=== PATIENT | male | born 1995 | race Caucasian/White ===

== ENCOUNTER 2018-11-10 18:14 | Emergency (ER) | payer SELFPAY ==
--- NOTE | 2018-11-10 18:20 | ER Report ---
History and Physical Time Seen By MD: 18:20 HPI/ROS CHIEF COMPLAINT: Nausea, vomiting and diarrhea HISTORY OF PRESENT ILLNESS: This is a 23-year-old male presents to the emergency department for nausea, vomiting and diarrhea. Patient states that about 2 days ago he developed intermittent nausea and vomiting then progressed into diarrhea. He states then yesterday he had a rather rapid onset of aches, chills and pains. Had increased nausea vomiting and diarrhea. Denies shortness of breath. No chest pain. No rashes or headaches. The patient also stated that he did consume a large quantity of alcohol last night. REVIEW OF SYSTEMS: Constitutional: No fever, no chills. Eyes: No discharge. ENT: No sore throat. Cardiovascular: No chest pain, no palpitations. Respiratory: No cough, no shortness of breath. Gastrointestinal: As above. Genitourinary: No hematuria. Musculoskeletal: As above. Skin: No rashes. Neurological: No headache. Allergies: Coded Allergies: amoxicillin (Verified Allergy, Unknown, 11/10/18) clavulanic acid (Verified Allergy, Unknown, 11/10/18) Home Meds Active Scripts Ondansetron Hcl (ZOFRAN) 4 Mg Tablet, 4 MG PO Q4-6H PRN for prn, #20 TAB 0 Refills Prov:LILLIAN SANTOS LAW OFFICE ASSISTANT- 11/10/18 Past Medical/Surgical History The patient has a past medical and surgical history of using marijuana occasionally and drinking alcohol. Reviewed Nurses Notes: Yes Constitutional Vital Sign - Last 24 Hours 11/10/18 11/10/18 11/10/18 11/10/18 18:20 18:21 18:30 18:44 Temp 98.8 Pulse 107 91 Resp 20 B/P (MAP) 153/100 153/100 (117) 130/86 (101) Pulse Ox 93 96 O2 Delivery Room Air 11/10/18 11/10/18 11/10/18 11/10/18 19:00 19:14 19:30 19:44 Pulse 93 95 B/P (MAP) 142/79 (100) 144/84 (104) Pulse Ox 92 92 Physical Exam General Appearance: The patient is alert, has no immediate need for airway protection and no signs of toxicity. Eyes: Pupils equal and round no pallor or injection. ENT, Mouth: Mucous membranes are moist. Respiratory: There are no retractions, lungs are clear to auscultation. Cardiovascular: Pounding, Regular rate and rhythm, no murmurs, clicks or rubs. Gastrointestinal: Abdomen is soft and non tender, no masses, hyperactive bowel sounds. Neurological: Alert and oriented 4. Moving all extremities. Following all commands. No focal neuro deficits. Skin: Warm and dry, no rashes. Musculoskeletal: Neck is supple non tender. Extremities are nontender, nonswollen and have full range of motion. DIFFERENTIAL DIAGNOSIS: After history and physical exam differential diagnosis was considered for influenza, viral syndrome, gastroenteritis, food poisoning and bowel obstruction. Medical Decision Making Data Points Result Diagram: 11/10/18 1834 11/10/18 0000 Laboratory Hematology Test 11/10/18 00:00 11/10/18 18:34 Sodium Level 138 mmol/L (137-145) Potassium Level 4.4 mmol/L (3.5-5.0) Chloride Level 103 mmol/L (98-107) Carbon Dioxide Level 13 mmol/L (22-30) Blood Urea Nitrogen 15 mg/dl (9-21) Creatinine 0.80 mg/dl (0.66-1.25) Glomerular Filtration Rate Calc > 60.0 Random Glucose 74 mg/dl (75-110) Calcium Level 9.8 mg/dl (8.4-10.2) Total Bilirubin 0.6 mg/dl (0.2-1.3) Aspartate Amino Transf (AST/SGOT) 41 U/L (0-35) Alanine Aminotransferase (ALT/SGPT) 36 U/L (0-56) Alkaline Phosphatase 110 U/L (0-126) Total Protein 8.3 g/dl (6.3-8.2) Albumin 5.1 g/dl (3.5-5.0) Influenza Virus Type A (PCR) Negative (NEGATIVE) Influenza Virus Type B (PCR) Negative (NEGATIVE) Red Blood Count 5.83 M/uL (4.00-5.60) Mean Corpuscular Volume 91.5 fL (80.0-96.0) Mean Corpuscular Hemoglobin 31.5 pg (26.0-33.0) Mean Corpuscular Hemoglobin Concent 34.5 g/dL (32.0-36.0) Red Cell Distribution Width 13.2 % (11.5-14.5) Mean Platelet Volume 8.5 fL (7.2-11.1) Neutrophils (%) (Auto) 88.4 % (39.4-72.5) Lymphocytes (%) (Auto) 7.6 % (17.6-49.6) Monocytes (%) (Auto) 3.6 % (4.1-12.4) Eosinophils (%) (Auto) 0.0 % (0.4-6.7) Basophils (%) (Auto) 0.4 % (0.3-1.4) Nucleated RBC Relative Count (auto) 0.0 /100WBC Neutrophils # (Auto) 16.9 K/uL (2.0-7.4) Lymphocytes # (Auto) 1.5 K/uL (1.3-3.6) Monocytes # (Auto) 0.7 K/uL (0.3-1.0) Eosinophils # (Auto) 0.0 K/uL (0.0-0.5) Basophils # (Auto) 0.1 K/uL (0.0-0.1) Nucleated RBC Absolute Count (auto) 0.00 K/uL Peripheral Blood Smear Yes Y/N Chemistry Test 11/10/18 00:00 11/10/18 18:34 Glomerular Filtration Rate Calc > 60.0 Calcium Level 9.8 mg/dl (8.4-10.2) Total Bilirubin 0.6 mg/dl (0.2-1.3) Aspartate Amino Transf (AST/SGOT) 41 U/L (0-35) Alanine Aminotransferase (ALT/SGPT) 36 U/L (0-56) Alkaline Phosphatase 110 U/L (0-126) Total Protein 8.3 g/dl (6.3-8.2) Albumin 5.1 g/dl (3.5-5.0) Influenza Virus Type A (PCR) Negative (NEGATIVE) Influenza Virus Type B (PCR) Negative (NEGATIVE) White Blood Count 19.2 k/uL (4.5-11.0) Red Blood Count 5.83 M/uL (4.00-5.60) Hemoglobin 18.4 g/dL (14.0-18.0) Hematocrit 53.4 % (42.0-52.0) Mean Corpuscular Volume 91.5 fL (80.0-96.0) Mean Corpuscular Hemoglobin 31.5 pg (26.0-33.0) Mean Corpuscular Hemoglobin Concent 34.5 g/dL (32.0-36.0) Red Cell Distribution Width 13.2 % (11.5-14.5) Platelet Count 292 K/uL (150-450) Mean Platelet Volume 8.5 fL (7.2-11.1) Neutrophils (%) (Auto) 88.4 % (39.4-72.5) Lymphocytes (%) (Auto) 7.6 % (17.6-49.6) Monocytes (%) (Auto) 3.6 % (4.1-12.4) Eosinophils (%) (Auto) 0.0 % (0.4-6.7) Basophils (%) (Auto) 0.4 % (0.3-1.4) Nucleated RBC Relative Count (auto) 0.0 /100WBC Neutrophils # (Auto) 16.9 K/uL (2.0-7.4) Lymphocytes # (Auto) 1.5 K/uL (1.3-3.6) Monocytes # (Auto) 0.7 K/uL (0.3-1.0) Eosinophils # (Auto) 0.0 K/uL (0.0-0.5) Basophils # (Auto) 0.1 K/uL (0.0-0.1) Nucleated RBC Absolute Count (auto) 0.00 K/uL Peripheral Blood Smear Yes Y/N ED Course/Re-evaluation Clinical Indication for ER IV: Hydration, IV Access ED Course The patient was admitted to room. A history and physical were obtained. Differential diagnoses were considered. An IV was started. A CBC, CMP were obtained. A 1 L normal saline bolus was given. 4 mg IV Zofran were given. CBC showing white count of 19.2, H&H 18.4 and 53.4, CO2 13, sugar 74. After speaking with the patient's marked extensively, he did finally indicate that he had sudden GI symptoms roughly 2 days ago however last night he had a significant amount of alcohol and has been nauseous and vomiting since. I did review the laboratory studies with the patient. I did tell him that this is likely a gastroenteritis that was complicated by consumption of alcohol. The white blood cell count is likely due to the gastroenteritis and the acute vomiting and diarrhea. I discussed this with the patient. Patient states he feels significantly better after the fluids and Zofran. I did give the patient a prescription for Zofran. I also encouraged patient not to drink alcohol for the next 1-2 weeks, drink plenty of fluids starting with a clear liquid diet and progress into a soft and regular diet. Patient expressed understanding and was d ischarged home. Decision to Disposition Date: Nov 10, 2018 Decision to Disposition Time: 19:42 Depart Departure Latest Vital Signs Vital Signs Date Time Temp Pulse Resp B/P (MAP) Pulse Ox O2 Delivery O2 Flow Rate FiO2 11/10/18 19:44 95 92 11/10/18 19:30 144/84 (104) 11/10/18 18:20 98.8 20 Room Air Impression: Primary Impression: Gastroenteritis Condition: Improved Disposition: HOME OR SELF-CARE New Scripts Ondansetron Hcl (ZOFRAN) 4 Mg Tablet 4 MG PO Q4-6H PRN for prn, #20 TAB 0 Refills Prov: LILLIAN SANTOS-KATIE 11/10/18 Patient Instructions: Clear Liquid Diet (ED), Gastroenteritis (ED) Additional Instructions: Please avoid alcohol for the next 7-14 days. Clear liquid diet for the next 24 hours then advance to a bland, soft diet and advanced as tolerated. Take Zofran as needed for nausea. Drink plenty of water. Get plenty of rest. Return to the emergency department for any other concerns or worsening symptoms. LILLIAN SANTOS-BC Nov 10, 2018 18:20
[2018-11-10] MEDS ORDERED: NS(*) 0.9% 1000 ML BAG 1,000 ML IV ONE (18:34)
[2018-11-10] MEDS ORDERED: ONDANSETRON 4 MG/2 ML VIAL IVP ONE ×2 (18:35→18:55)
[2018-11-10 18:47] LABS: PLATELET COUNT, AUTOMATED 292 K/uL (150-450)
[2018-11-10 19:30] VITALS: BP 144/84
[2018-11-10] MEDS ORDERED: ONDA4TAB97 PO (19:43)
== END 2018-11-10 19:54 | disposition home or self-care (01) ==
LOC: ER 18:48
DX: K52.9 Noninfective gastroenteritis and colitis, unspecified (principal)
CPT/HCPCS: 85025; 87502; 96374; 99283; J2405; 82040; 82247; 82310; 82374; 82435; 82565; 82947; 84075; 84132; 84155; 84295; 84450; 84460; 84520

== ENCOUNTER 2019-01-13 04:22 | Emergency (ER) | payer SELFPAY ==
[~2019-01-13 04:22] MED LIST: ONDA4TAB97 PO
[2019-01-13 04:24] VITALS: BP 143/99
--- NOTE | 2019-01-13 04:26 | ER Report ---
History and Physical Time Seen By MD: 04:26 HPI/ROS CHIEF COMPLAINT: Detention clearance HISTORY OF PRESENT ILLNESS: 23-year-old male brought in by police for usp clearance. Patient voices no complaints. Patient voices no significant past medical history. Patient voices no injuries. Patient missed alcohol ingestion. REVIEW OF SYSTEMS: Respiratory: No cough, no dyspnea. Cardiovascular: No chest pain, no palpitations. Gastrointestinal: No vomiting, no abdominal pain. Musculoskeletal: No back pain. Allergies: Coded Allergies: amoxicillin (Verified Allergy, Unknown, 01/13/19) clavulanic acid (Verified Allergy, Unknown, 01/13/19) Home Meds Discontinued Scripts Ondansetron Hcl (ZOFRAN) 4 Mg Tablet, 4 MG PO Q4-6H PRN for prn, #20 TAB 0 Refills Prov:LILLIAN SANTOS ELECTRIC ORGAN INSPECTOR AND REPAIRER-BC 11/10/18 Hx Substance Use Disorder: Yes (MARIJUANA) Hx Alcohol Use: Yes Constitutional Vital Sign - Last 24 Hours 01/13/19 04:24 Temp 98.6 Pulse 100 Resp 14 B/P (MAP) 143/99 Pulse Ox 95 O2 Delivery Room Air Physical Exam General Appearance: The patient is alert, has no immediate need for airway protection and no current signs of toxicity. Vital signs stable, afebrile, pulse ox normal HEENT: Pupils equal and round no injection. TMs normal, oropharynx without dental trauma on the order of EtOH noted Respiratory: Chest is non tender, lungs are clear to auscultation. No chest wall tenderness Cardiac: regular rate and rhythm Gastrointestinal: Abdomen is soft and non tender, no masses, bowel sounds normal. Musculoskeletal: Neck: Neck is supple and non tender. Extremities have full range of motion and are non tender. No evidence of trauma Skin: No rashes or lesions. DIFFERENTIAL DIAGNOSIS: After history and physical exam differential diagnosis was considered for usp clearance, alcohol intoxication, polysubstance abuse Medical Decision Making ED Course/Re-evaluation ED Course Patient was admitted to an examination room. H&P was done. The differential diagnosis was considered. On clinical examination. Patient has no findings. His vital signs are stable. He voices no complaints, he is medical cleared for usp admission. Decision to Disposition Date: Jan 13, 2019 Decision to Disposition Time: 04:43 Depart Departure Latest Vital Signs Vital Signs Date Time Temp Pulse Resp B/P (MAP) Pulse Ox O2 Delivery O2 Flow Rate FiO2 01/13/19 04:24 98.6 100 14 143/99 95 Room Air Impression: Primary Impression: Medical clearance for incarceration Additional Impression: Alcohol intoxication Condition: Improved Disposition: [facility] TO USP/CORRECTIONAL F New Scripts No Active Prescriptions or Reported Meds Patient Instructions: Alcohol Intoxication (ED) Additional Instructions: Medically cleared for usp admission Problem Qualifiers Additional Impression: Alcohol intoxication Complication of substance-induced condition: uncomplicated Qualified Codes: F10.920 - Alcohol use, unspecified with intoxication, uncomplicated PACO CASH DO Jan 13, 2019 04:26
== END 2019-01-13 04:52 ==
LOC: ER 04:26
DX: F10.920 Alcohol use, unspecified with intoxication, uncomplicated (principal)
CPT/HCPCS: 99281